=== PATIENT | female | born 1995 | race Caucasian/White ===

== ENCOUNTER 2017-02-22 00:12 | Emergency (ER) | payer MEDICAID, OTHER ==
[~2017-02-22] VITALS: Ht 172.7 cm; Wt 72.6 kg
[2017-02-22 00:27] VITALS: BP_SYST 108
--- NOTE | 2017-02-22 01:25 | NUR ---
Placed in room H1 . Report given to LASHANDA Cardona.
--- NOTE | 2017-02-22 01:35 | NUR ---
Pt states when working at [employer], she spilled boiling water on her L foot. Appears to be 2nd degree burn. Pt rates pain 2/10. Will continue to monitor. No other injuries or complaints mentioned/noted. No distress noted.
--- NOTE | 2017-02-22 02:00 | NUR ---
ER Dr. Peng at bedside examining patient.
[2017-02-22] MEDS ORDERED: BACITRACIN 1 GM OINT TP ONE (02:18)
[2017-02-22 02:19] VITALS: BP_SYST 128
--- NOTE | 2017-02-22 02:19 | NUR ---
Patient given written and verbal discharge instructions and verbalizes understanding. ER MD discussed with patient the results and treatment provided. Patient in stable condition. ID arm band removed. Rx of Bacitracin given. Patient educated on pain management and to follow up with PMD. Pain Scale 0/10. Opportunity for questions provided and answered.
== END 2017-02-22 02:19 | disposition home or self-care (01) ==
LOC: SED 00:12
DX: T25.122A Burn of first degree of left foot, initial encounter (principal); T79.9XXA Unspecified early complication of trauma, initial encounter; X11.8XXA Contact with other hot tap-water, initial encounter; Y93.89 Activity, other specified; Y92.89 Other specified places as the place of occurrence of the external cause; Y99.8 Other external cause status
CPT/HCPCS: 99284

== ENCOUNTER 2022-10-05 23:05 | Emergency (ER) | payer SELFPAY ==
[~2022-10-05] VITALS: Ht 170.2 cm; Wt 136.1 kg
[2022-10-05 23:31] VITALS: BP_SYST 122
--- NOTE | 2022-10-05 23:37 | NUR ---
Patient ambulatory to bed 4 for evaluation and treatment
--- NOTE | 2022-10-05 23:50 | NUR ---
MD AT BEDSIDE WITH PATIENT FOR MSE.
[2022-10-06] MEDS ORDERED: PROCHLORPERAZINE EDISYLATE 10 MG/2 ML VIAL IVP ONE
[2022-10-06] MEDS ORDERED: NACL 0.9% 1,000 ML IV ONE
[2022-10-06] MEDS ORDERED: DIPHENHYDRAMINE INJ 50 MG/ML VIAL IVP ONE
--- NOTE | 2022-10-06 | NUR ---
PT FROM HOME WITH C/O MIGRAINE X1 DAY. PT DENIES N/V, DIARRHEA. PT REPORTS TAKING MOTRIN AT 2200 WITH NO RELIEF. SAFETY PRECAUTIONS IN PLACE AND CONNECTED TO THE MONITOR.
[2022-10-06] MEDS ORDERED: CIPR500T5 PO (00:09)
[2022-10-06] MEDS ORDERED: IBUP-1971 PO (00:09)
--- NOTE | 2022-10-06 00:50 | NUR ---
PT REUQESTING TO LEAVE WITHOUT FINISHING FLUIDS. MADE AWARE.
[2022-10-06 01:09] VITALS: BP_SYST 122
--- NOTE | 2022-10-06 01:09 | NUR ---
Patient given written and verbal discharge instructions and verbalizes understanding. ER Dr. Leal discussed with patient the results and treatment provided. Patient in stable condition. ID arm band removed. IV catheter removed intact and dressing applied, no active bleeding. Rx of cirpo and motrin given. Patient educated on pain management and to follow up with PMD. Pain Scale 0. Opportunity for questions provided and answered. Medication side effect fact sheet provided.
== END 2022-10-06 01:09 | disposition home or self-care (01) ==
LOC: SED 23:05
DX: N39.0 Urinary tract infection, site not specified (principal); R51.9 Headache, unspecified; Z79.899 Other long term (current) drug therapy
CPT/HCPCS: 99284; 81002; 81025; 96374; 96361; 96375; J1200; J0780; J7030